=== PATIENT | female | born 1940 | race Native Hawaiian/Other Pacific Islander ===

== ENCOUNTER 2018-04-26 04:41 | Emergency (ER) | payer SELFPAY ==
--- NOTE | 2018-04-26 05:55 | ED PDOC ---
HPI: Altered Mental Status Time Seen by Provider: 04/26/18 04:55 Chief Complaint (Nursing): Altered Mental Status Chief Complaint (Provider): Altered mental status History Per: EMS, Route Service Manager ([id number] (mandarin)) History/Exam Limitations: Clinical Condition Onset/Duration Of Symptoms: Unknown Onset Of Symptoms: Cannot Confirm Onset Current Symptoms Are (Timing): Still Present Usual Baseline: Unknown Additional Complaint(s): 78yo [place] female, with history of diabetes, "skin problem" and possible hepatitis c, brought to ER by EMS after they found patient wandering the streets since 10pm. Patient is a difficult historian despite using a loom cleaner. Patient states she was not harming anyone and she was not committing any crime. Patient reports she was looking for a hospital and a doctor to help manage her diabetes. 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 Patient is disoriented. She is santos that it is either April/May and states she was born in 1937. HPI and ROS limited due to clinical condition. Past Medical History Reviewed: Historical Data, Nursing Documentation, Vital Signs Vital Signs: Last Vital Signs Temp 97.8 F 04/26/18 05:09 Pulse 98 H 04/26/18 05:09 Resp 16 04/26/18 05:09 BP 159/94 H 04/26/18 05:09 Pulse Ox 98 04/26/18 05:09 - Medical History PMH: Diabetes, Hepatitis (? hep c) - Family History Family History: States: Unknown Family Hx - Allergies Allergies/Adverse Reactions: Allergies Allergy/AdvReac Type Severity Reaction Status Date / Time No Known Allergies Allergy Verified 04/26/18 07:27 Review of Systems Review Of Systems: ROS cannot be obtained secondary to pt's inabilty to answer questions. Physical Exam - Reviewed Nursing Documentation Reviewed: Yes Vital Signs Reviewed: Yes - Physical Exam Appears: Positive for: No Acute Distress Head Exam: Positive for: ATRAUMATIC, NORMAL INSPECTION, NORMOCEPHALIC Skin: Positive for: Normal Color Eye Exam: Positive for: Normal appearance Neck: Positive for: Normal, Supple Cardiovascular/Chest: Positive for: Regular Rate, Rhythm Respiratory: Positive for: Normal Breath Sounds Gastrointestinal/Abdominal: Positive for: Normal Exam, Soft. Negative for: Tenderness Back: Positive for: Normal Inspection. Negative for: Vertebral Tenderness Extremity: Positive for: Normal ROM. Negative for: Pedal Edema, Deformity Neurologic/Psych: Positive for: Alert, Oriented (x 1) - Laboratory Results Result Diagrams: 04/26/18 05:50 04/26/18 05:50 - ECG O2 Sat by Pulse Oximetry: 98 (RA) Pulse Ox Interpretation: Normal Medical Decision Making Medical Decision Making: Assessment: 78yo female, with history of diabetes, (?) hepatitis c, brought to ER due to confusion. Patient may be at her baseline, but no collateral information present for corroboration. No obvious signs of trauma noted. Patient currently has stable vital signs. Plan: -- CT Head w/o contrast -- Chest x-ray -- EKG -- Labs -- Urinalysis Patient to be medically cleared and also get social work administrator on board. 0649 Able to get in touch with patient's family member who states they will come to the ER. Contact information ([phone]). [id number] CT Head FINDINGS: BRAIN Chronic periventricular and subcortical microvascular disease is seen. VENTRICLES: There is generalized parenchymal atrophy noted as demonstrated by symmetrical di latation of ventricles and sulci. ORBITS: The orbits are unremarkable. SINUSES AND MASTOIDS: Complete opacification of all sinuses compatible with acute on chronic pansinusitis BONES: No fracture. SOFT TISSUES: Unremarkable. MISCELLANEOUS: No acute intracranial pathology. IMPRESSION: 1. There is generalized parenchymal atrophy noted as demonstrated by symmetrical dilatation of ventricles and sulci. 2. Chronic periventricular and subcortical microvascular disease is seen. 3. Pansinusitis 4. No acute intracranial pathology. 0655 Labs reviewed, patient with elevated lactate (2.5). Urinalysis and UDS reviewed and are unremarkable. 0700 Patient to be signed out to Dr. Menjivar pending reassessment, final disposition. Scribe Attestation: Documented by Hyun Rueda, acting as a scribe for Davian Taylor MD. Provider Scribe Attestation: All medical record entries made by the Scribe were at my direction and personally dictated by me. I have reviewed the chart and agree that the record accurately reflects my personal performance of the history, physical exam, medical decision making, and the department course for this patient. I have also personally directed, reviewed, and agree with the discharge instructions and disposition. Disposition - Clinical Impression Clinical Impression: Altered mental status - Patient ED Disposition Is Patient to be Admitted: Transfer of Care - Disposition Disposition: Transfer of Care Disposition Time: 07:00 Condition: FAIR Instructions: Altered Mental Status Forms: [facility] (Turkish) Patient Signed Over To: Lucio Menjivar Handoff Comments: pending re-eval
[2018-04-26 05:57] LABS: URINE BILIRUBIN NEGATIVE (NEGATIVE); URINE BLOOD NEGATIVE (NEGATIVE); URINE CLARITY CLOUDY (Clear); URINE COLOR YELLOW (YELLOW); URINE GLUCOSE (UA) NEG (Normal); URINE LEUKOCYTE ESTERASE NEG Leu/uL (Negative); URINE PROTEIN 100 mg/dL (NEGATIVE); URINE UROBILINOGEN 0.2-1.0 mg/dL (0.2-1.0)
[2018-04-26 06:07] LABS: PROTHROMBIN TIME 11.1 Seconds (9.8-13.1)
[2018-04-26 06:10] LABS: PARTIAL THROMBOPLASTIN TIME 30.8 Seconds (25.6-37.1)
[2018-04-26 06:20] LABS: BASO % 0.1 % (0.0-2.0); EOS % 0.2 % (0.0-4.0); HEMOGLOBIN 11.2 g/dL (12.0-16.0); LYMPH # 0.9 K/uL (1.0-4.3); LYMPH % 10.2 % (20.0-40.0); MEAN CELL VOLUME 96.2 fl (81.0-99.0); MEAN CORPUSCULAR HGB CONC 33.3 g/dL (33.0-37.0); MEAN PLATELET VOLUME 8.1 fl (7.2-11.7); MONO # 0.3 K/uL (0.0-0.8); NEUT # 7.4 K/uL (1.8-7.0); NEUT % 85.5 % (50.0-75.0); RBC 3.48 Mil/uL (3.80-5.20); RED CELL DISTRIBUTION WIDTH 13.5 % (11.5-14.5); WHITE BLOOD COUNT 8.7 K/uL (4.8-10.8)
[2018-04-26 06:24] LABS: BLOOD UREA NITROGEN 23 mg/dl (7-17); CALCIUM 9.2 mg/dL (8.4-10.2); GFR NON-AFRICAN AMERICAN > 60
[2018-04-26 06:38] LABS: VENOUS BLOOD GAS BASE EXCESS 3.1 mmol/L (0.0-2.0); VENOUS BLOOD GAS PCO2 28 mmHg (40-60); VENOUS BLOOD GAS PO2 42 mm/Hg (30-55); VENOUS BLOOD PH 7.55 (7.32-7.43)
[2018-04-26 06:45] LABS: BARBITURATES, UR NEGATIVE (NEGATIVE); BENZODIAZEPINES, UR NEGATIVE (NEGATIVE); OPIATES, UR NEGATIVE (NEGATIVE); PHENCYCLIDINE, UR NEGATIVE (NEGATIVE)
[2018-04-26] MEDS ORDERED: Sodium Chloride 0.9% 1,000 ML IV STA (07:03)
--- NOTE | 2018-04-26 07:27 | ED PDOC ---
- Laboratory Results Result Diagrams: 04/26/18 05:50 04/26/18 05:50 - ECG O2 Sat by Pulse Oximetry: 98 (RA) Pulse Ox Interpretation: Normal Medical Decision Making Medical Decision Making: Time: 0700 Patient endorsed to provider by Dr. Taylor, pending for patient's family and reassessment. Sheet [employer]inter service used to explain to family the need for additional assessment to determine the causes for altered mental status. Family understands the consequences for not remaining for addition evaluation in ED but still want to take the patient home. Patient and family advised to return to ED immediately if any other complain or issues arises and need for follow up with family health. Scribe Attestation: Documented by Nayla Momin, acting as a scribe for Lucio Menjivar MD. Provider Scribe Attestation: All medical record entries made by the Scribe were at my direction and personally dictated by me. I have reviewed the chart and agree that the record accurately reflects my personal performance of the history, physical exam, medical decision making, and the department course for this patient. I have also personally directed, reviewed, and agree with the discharge instructions and disposition. Disposition - Clinical Impression Clinical Impression: Altered mental status - POA Present On Arrival: None - Disposition Disposition: Routine/Home Disposition Time: 08:22 Instructions: Altered Mental Status Forms: [employer] ([place]se)
[2018-04-26 07:35] VITALS: BP 138/68; PULSE 82; RESP 17; TEMP 97.4
--- NOTE | 2018-04-26 08:20 | CT ---
Date of service: 04/26/2018 PROCEDURE: CT HEAD WITHOUT CONTRAST. HISTORY: confused COMPARISON: None available. TECHNIQUE: Axial computed tomography images were obtained through the head/brain without intravenous contrast. Radiation dose: Total exam DLP = 877.77 mGy-cm. This CT exam was performed using one or more of the following dose reduction techniques: Automated exposure control, adjustment of the mA and/or kV according to patient size, and/or use of iterative reconstruction technique. FINDINGS: HEMORRHAGE: No intracranial hemorrhage. BRAIN: No mass effect or edema. Mild diffuse age-appropriate cerebral atrophy. Mild to moderate periventricular white matter lucency consistent with microvascular white matter ischemic change. No evidence of acute infarct. VENTRICLES: Unremarkable. No hydrocephalus. CALVARIUM: Unremarkable. PARANASAL SINUSES: Extensive chronic pansinusitis MASTOID AIR CELLS: Unremarkable as visualized. No inflammatory changes. OTHER FINDINGS: None. IMPRESSION: No intracranial mass, hemorrhage or evidence of acute infarct. Extensive chronic pansinusitis. Otherwise unremarkable. The preliminary findings for this examination were reported by [facility] at 6:49 a.m. on 04/26/2018. There is concurrence of this report with the preliminary findings.
[2018-04-26 08:23] VITALS: O2SAT 98
--- NOTE | 2018-04-26 09:38 | RAD ---
Date of service: 04/26/2018 PROCEDURE: CHEST RADIOGRAPH, 1 VIEW HISTORY: confusion COMPARISON: None available. FINDINGS: LUNGS: Clear. PLEURA: No pneumothorax or pleural fluid seen. CARDIOVASCULAR: No aortic atherosclerotic calcification present. Normal. OSSEOUS STRUCTURES: No significant abnormalities. VISUALIZED UPPER ABDOMEN: Normal. OTHER FINDINGS: None. IMPRESSION: No active disease.
== END 2018-04-26 08:51 | disposition home or self-care (01) ==
LOC: H.ER 04:41
DX: R41.82 Altered mental status, unspecified (principal); B19.20 Unspecified viral hepatitis C without hepatic coma; E11.9 Type 2 diabetes mellitus without complications; J32.4 Chronic pansinusitis
CPT/HCPCS: 70450; 71045; 80048; 81003; 82803; 82948; 85025; 85610; 85730; 96360; 99285; G0480; J7030